=== PATIENT | female | born 1970 | race Caucasian/White ===

== ENCOUNTER 2019-07-19 12:34 | Emergency (ER) | payer BC ==
[2019-07-19] MEDS ORDERED: Sodium Chloride 0.9% 10 ML Syringe FLUSH PRN (12:52)
[2019-07-19 12:59] VITALS: BP 136/77; PULSE 63
--- NOTE | 2019-07-19 13:05 | EDM.PDOC ---
ED HPI GENERAL MEDICAL PROBLEM - General Stated Complaint: SEVERE ABDOMINAL PAIN Time Seen by Provider: 07/19/19 12:55 Source of Information: Reports: Patient History Limitations: Reports: No Limitations - History of Present Illness INITIAL COMMENTS - FREE TEXT/NARRATIVE: This 49 yo female patient reports to the ED with upper abdominal pain and bloating. The patient reports she has been having increased abdominal pain since the beginning of the month. The patient reports she was seen in [place] on 07/07/19 for more upper abdominal pain. The patient had a follow- up in [place], [place] yesterday when she had an EGD. The patient has a history of having a lap band placed 12 years ago. The patient was advised that the lab band would need to be removed. The patient states she is currently waiting for approval. The patient reports she had increased abdominal pain and bloating today. The patient called the facility that did the EGD yesterday and was advised to come to the ED for a CT to make sure that there was not a perforation. The patient reports she has not had a bowel movement for 2 days, but has been NPO due to the EGD and has not felt like eating after the procedure. The patient reports she attempted to go to work today, but started to notice increased symptoms. Onset: Other Duration: Day(s):, Constant, Getting Worse Location: Reports: Abdomen Quality: Reports: Ache, Sharp Severity: Severe Improves with: Reports: None Worsens with: Reports: None Context: Reports: Other Associated Symptoms: Reports: No Other Symptoms Middle Abdomen Pain Score (Numeric/FACES): 8 - Related Data Allergies Allergy/AdvReac Type Severity Reaction Status Date / Time codeine Allergy Nausea Verified 07/19/19 12:59 hydrocodone Allergy Itching Verified 07/19/19 12:59 Home Meds: Home Meds Biotin 10,000 mcg PO DAILY 12/15/16 [History] Calcium Carbonate/Vitamin D3 [Calcium 500 + Vit D Caplet] 2 tab PO DAILY [History] Cholecalciferol (Vitamin D3) [Vitamin D3] 5,000 unit PO DAILY 12/15/16 [History] Iron 18 mg PO DAILY 12/15/16 [History] Multivitamin [Multivitamins] 2 tab PO DAILY 12/15/16 [History] buPROPion HCl [Bupropion Xl] 300 mg PO DAILY 12/15/16 [History] Vitamin B Complex [B Complex] 1 each PO DAILY 05/20/17 [History] Pantoprazole [ProTONIX] 40 mg PO DAILY 07/07/19 [History] Past Medical History - Past Surgical History HEENT Surgical History: Reports: Adenoidectomy, Tonsillectomy GI Surgical History: Reports: Bariatric Procedure, Cholecystectomy, Other (See Below) Social & Family History - Family History Family Medical History: Noncontributory - Caffeine Use Caffeine Use: Reports: Coffee ED ROS GENERAL - Review of Systems Review Of Systems: Comprehensive ROS is negative, except as noted in HPI. ED EXAM, GI/ABD - Physical Exam Exam: See Below Exam Limited By: No Limitations General Appearance: Alert, WD/WN, Moderate Distress Eyes: Bilateral: Normal Appearance, EOMI Ears: Normal External Exam, Normal Canal, Hearing Grossly Normal, Normal TMs Nose: Normal Inspection, Normal Mucosa, No Blood Throat/Mouth: Normal Inspection, Normal Lips, Normal Teeth, Normal Gums, Normal Oropharynx, Normal Voice, No Airway Compromise Head: Atraumatic, Normocephalic Neck: Normal Inspection, Supple, Non-Tender, Full Range of Motion Respiratory/Chest: No Respiratory Distress, Lungs Clear, Normal Breath Sounds, No Accessory Muscle Use, Chest Non-Tender Cardiovascular: Normal Peripheral Pulses, Regular Rate, Rhythm, No Edema, No Gallop, No JVD, No Murmur, No Rub GI/Abdominal Exam: Normal Bowel Sounds, Pelvis Stable, Distended, Guarding, Tender (upper abdomen) (Female) Exam: Deferred Rectal (Female) Exam: Deferred Back Exam: Normal Inspection, Full Range of Motion, NT Extremities: Normal Inspection, Normal Range of Motion, Non-Tender, Normal Capillary Refill, No Pedal Edema Neurological: Alert, Oriented, CN II-XII Intact, Normal Cognition, Normal Gait, Normal Reflexes, No Motor/Sensory Deficits Psychiatric: Normal Affect, Normal Mood Skin Exam: Warm, Dry, Intact, Normal Color, No Rash Lymphatic: No Adenopathy Course - Vital Signs Last Recorded V/S: Last Vital Signs Temp 36.2 C 07/19/19 12:54 Pulse 63 07/19/19 12:54 Resp 16 07/19/19 12:54 BP 136/77 07/19/19 12:54 Pulse Ox 99 07/19/19 12:54 - Orders/Labs/Meds Orders: Active Orders 24 hr Category Date Time Status AMYLASE [CHEM] Stat Lab 07/19/19 15:58 Ordered LIPASE [CHEM] Stat Lab 07/19/19 15:58 Ordered Sodium Chloride 0.9% [Saline Flush] Med 07/19/19 12:52 Ordered 10 ml FLUSH ASDIRECTED PRN Saline Lock Insert [OM.PC] Routine Oth 07/19/19 12:52 Ordered Medication Orders Sodium Chloride (Saline Flush) 10 ml FLUSH ASDIRECTED PRN PRN Reason: Keep Vein Open Last Admin: 07/19/19 13:00 Dose: 10 ml Labs: Laboratory Tests 07/19/19 07/19/19 07/19/19 Range/Units 12:58 12:58 13:21 WBC 7.2 (5.0-10.0) 10^3/uL RBC 5.09 (4.2-5.4) 10^6/uL Hgb 15.2 (12.0-16.0) g/dL Hct 45.7 (37.0-47.0) % MCV 89.8 (80-100) fL MCH 29.9 (27.0-34.0) pg MCHC 33.3 (33.0-35.0) g/dL Plt Count 339 (150-450) 10^3/uL Neut % (Auto) 65.7 (42.2-75.2) % Lymph % (Auto) 24.1 (20.5-50.1) % [place] % (Auto) 8.9 H (2-8) % Eos % (Auto) 1.0 (1.0-3.0) % Baso % (Auto) 0.3 (0.0-1.0) % Sodium 137 (135-145) mmol/L Potassium 3.8 (3.6-5.0) mmol/L Chloride 97 L (101-111) mmol/L Carbon Dioxide 29.0 (21.0-31.0) mmol/L Anion Gap 14.8 BUN 14 (7-18) mg/dL Creatinine 0.6 (0.6-1.3) mg/dL Est Cr Clr Drug Dosing 111.90 mL/min Estimated GFR (MDRD) > 60 BUN/Creatinine Ratio 23.33 Glucose 101 (74-105) mg/dL Calcium 9.7 (8.4-10.2) mg/dl Total Bilirubin 0.5 (0.2-1.0) mg/dL AST 31 (10-42) IU/L ALT 29 (10-60) IU/L Alkaline Phosphatase 100 (42-121) IU/L Total Protein 8.2 (6.7-8.2) g/dl Albumin 4.7 (3.2-5.5) g/dl Globulin 3.5 Albumin/Globulin Ratio 1.34 Urine Color Yellow (YELLOW) Urine Appearance Clear (CLEAR) Urine pH 6.0 (5.0-9.0) Ur Specific [place] 1.010 (1.005-1.030) Urine Protein Negative (NEGATIVE) Urine Glucose (UA) Negative (NEGATIVE) Urine Ketones Negative (NEGATIVE) Urine Occult Blood Negative (NEGATIVE) Urine Nitrite Negative (NEGATIVE) Urine Bilirubin Negative (NEGATIVE) Urine Urobilinogen 0.2 (0.2-1.0) mg/dL Ur Leukocyte Esterase Negative (NEGATIVE) Meds: Medications Generic Name Dose Route Start Last Admin Trade Name Freq PRN Reason Stop Dose Admin Sodium Chloride 10 ml 07/19/19 12:52 07/19/19 13:00 Saline Flush FLUSH 10 ml ASDIRECTED PRN Administration Keep Vein Open Discontinued Medications Generic Name Dose Route Start Last Admin Trade Name Freq PRN Reason Stop Dose Admin Hydromorphone HCl 1 mg 07/19/19 15:18 07/19/19 15:26 Dilaudid IVPUSH 07/19/19 15:19 1 mg ONETIME ONE Administration Iopamidol 100 ml 07/19/19 13:29 07/19/19 13:45 Isovue-300 (61%) IVPUSH 07/19/19 13:30 75 ml ONETIME ONE Administration Departure - Departure Time of Disposition: 16:18 Disposition: DC/Tfer to Acute Hospital 02 Condition: Poor Clinical Impression: Abdominal pain Qualifiers: Abdominal location: epigastric Qualified Code(s): R10.13 - Epigastric pain - Discharge Information *PRESCRIPTION DRUG MONITORING PROGRAM REVIEWED*: Not Applicable *COPY OF PRESCRIPTION DRUG MONITORING REPORT IN PATIENT MOIZ: Not Applicable Forms: Interfacility Transfer EMTALA Care Plan Goals: Discussed the patient's history, examination, lab and CT results with Dr. Mac ([facility] ED) and Dr. Vazquez (GI). Dr. Mac accepted the patient for continued evaluation and management. The patient will be transported by her spouse. Sepsis Event Note - Evaluation Sepsis Screening Result: No Definite Risk - Focused Exam Vital Signs: Vital Signs Temp Pulse Resp BP Pulse Ox 07/19/19 12:54 36.2 C 63 16 136/77 99 Date Exam was Performed: 07/19/19 Time Exam was Performed: 16:18 - My Orders Last 24 Hours: My Active Orders 07/19/19 12:52 Sodium Chloride 0.9% [Saline Flush] 10 ml FLUSH ASDIRECTED PRN Saline Lock Insert [OM.PC] Routine 07/19/19 15:58 AMYLASE [CHEM] Stat LIPASE [CHEM] Stat - Assessment/Plan Last 24 Hours: My Active Orders 07/19/19 12:52 Sodium Chloride 0.9% [Saline Flush] 10 ml FLUSH ASDIRECTED PRN Saline Lock Insert [OM.PC] Routine 07/19/19 15:58 AMYLASE [CHEM] Stat LIPASE [CHEM] Stat
[2019-07-19 13:24] LABS: ANION GAP 14.8; CHLORIDE,CL 97 mmol/L (101-111); SODIUM,NA 137 mmol/L (135-145)
[2019-07-19] MEDS ORDERED: Iopamidol 612 MG/ML 100 ML Bottle IVPUSH ONE (13:29)
[2019-07-19] MEDS ORDERED: HYDROmorphone 1 MG/ML Syringe IVPUSH ONE (15:18)
== END 2019-07-19 16:28 ==
LOC: DL.ED 12:34
DX: R10.13 Epigastric pain (principal); Z88.5 Allergy status to narcotic agent; Z90.49 Acquired absence of other specified parts of digestive tract
CPT/HCPCS: 36415; 74177; 80053; 81003; 82150; 83690; 85025; 96374; 99285; J1170; Q9967